=== PATIENT | female | born 1980 | race Two or more races ===

== ENCOUNTER 2017-06-07 19:03 | Emergency (ER) | payer OTHER ==
[2017-06-07] MEDS ORDERED: ONDANSETRON HCL INJ/PF 4 MG/2 ML SDV IV ONE (19:28)
[2017-06-07] MEDS ORDERED: NORMAL SALINE 1000 ML 1,000 ML IV ONE (19:28)
[2017-06-07] MEDS ORDERED: HYDROMORPHONE HCL INJ/PF 2 MG/ML AMPULE IV ONE ×2 (19:28→23:18)
--- NOTE | 2017-06-07 19:29 | ER Document Report ---
ED Medical Screen (RME) - General Chief Complaint: Vaginal Bleeding Stated Complaint: POSSIBLE MISCARRIAGE Time Seen by Provider: 06/07/17 19:27 Notes: pt states she is ten weeks preg and is now having severe abd pain/bleeding/ vomiting TRAVEL OUTSIDE OF THE [place] IN LAST 30 DAYS: No - Related Data Allergies/Adverse Reactions: No Known Allergies Allergy (Unverified 06/07/17 19:06) Physical Exam - Vital signs Vitals: Temp Pulse Resp BP Pulse Ox 97.8 F 56 L 20 123/105 H 100 06/07/17 19:20 06/07/17 19:20 06/07/17 19:20 06/07/17 19:20 06/07/17 19:20 Course - Vital Signs Vital signs: Temp Pulse Resp BP Pulse Ox 97.8 F 56 L 20 123/105 H 100 06/07/17 19:20 06/07/17 19:20 06/07/17 19:20 06/07/17 19:20 06/07/17 19:20
[2017-06-07 20:32] LABS: ABSOLUTE LYMPHOCYTES (AUTO) 1.1 10^3/uL (0.5-4.7); ABSOLUTE MONOCYTES (AUTO) 0.3 10^3/uL (0.1-1.4); ABSOLUTE NEUT (AUTO) 11.8 10^3/uL (1.7-8.2); BASOPHILS % (AUTO) 0.2 % (0-2); EOSINOPHILS % (AUTO) 0.2 % (0-6); HEMATOCRIT 37.4 % (36.0-47.0); HEMOGLOBIN 12.7 g/dL (12.0-15.5); LYMPHOCYTES % (AUTO) 8.3 % (13-45); MEAN CORPUSCULAR HEMOGLOBIN 28.5 pg (27.0-33.4); MEAN CORPUSCULAR VOLUME 84 fl (80-97); MONOCYTES % (AUTO) 2.3 % (3-13); PLATELET COUNT 404 10^3/uL (150-450); RED BLOOD COUNT 4.47 10^6/uL (3.72-5.28); RED CELL DISTRIBUTION WIDTH 12.8 % (11.5-14.0); TOTAL CELLS COUNTED % (AUTO) 100 %; WHITE BLOOD COUNT 13.2 10^3/uL (4.0-10.5)
[2017-06-07 20:39] LABS: ALANINE AMINOTRANSFERASE 35 U/L (9-52); ALBUMIN 4.4 g/dL (3.5-5.0); ALKALINE PHOSPHATASE 51 U/L (38-126); ANION GAP 13 (5-19); ASPARTATE AMINO TRANSFERASE 22 U/L (14-36); BILIRUBIN,DIRECT 0.3 mg/dL (0.0-0.4); BILIRUBIN,TOTAL 0.4 mg/dL (0.2-1.3); BLOOD UREA NITROGEN 7 mg/dL (7-20); CALCIUM 10.3 mg/dL (8.4-10.2); CARBON DIOXIDE 20 mmol/L (22-30); CHLORIDE 106 mmol/L (98-107); GLUCOSE 103 mg/dL (75-110); POTASSIUM 4.2 mmol/L (3.6-5.0); SODIUM 139.2 mmol/L (137-145); TOTAL PROTEIN 7.4 g/dL (6.3-8.2)
--- NOTE | 2017-06-07 21:39 | ER Document Report ---
ED General - General Mode of Arrival: Ambulatory Information source: Patient TRAVEL OUTSIDE OF THE [place] IN LAST 30 DAYS: No <EMILEE CAI - Last Filed: 06/08/17 03:36> <ELIEL DOUGHERTY - Last Filed: 06/08/17 03:47> - General Chief Complaint: Vaginal Bleeding Stated Complaint: POSSIBLE MISCARRIAGE Time Seen by Provider: 06/07/17 19:27 Notes: Patient is a 36 year old female presenting to the emergency department via EMS complaining of vaginal bleeding and abdominal cramps while approximately 10 weeks onset this morning. Patient states she woke up with some vaginal spotting which progressed to heavy bleeding with blood clots as the day went on. Patient states she has had a previous miscarriage although these symptoms are not similar. Patient states she has also been trying fertility treatments. Patient is . (EMILEE CAI) - Related Data Allergies/Adverse Reactions: No Known Allergies Allergy (Unverified 06/07/17 19:06) Past Medical History - General Information source: Patient - Social History Smoking Status: Unknown if Ever Smoked Family History: Reviewed & Not Pertinent Patient has suicidal ideation: No Patient has homicidal ideation: No Renal/ Medical History: Denies: Hx Peritoneal Dialysis <EMILEE CAI - Last Filed: 06/08/17 03:36> Review of Systems - Review of Systems Constitutional: No symptoms reported EENT: No symptoms reported Cardiovascular: No symptoms reported Respiratory: No symptoms reported Gastrointestinal: See HPI, Abdominal pain Genitourinary: No symptoms reported Female Genitourinary: See HPI, , Vaginal bleeding Musculoskeletal: No symptoms reported Skin: No symptoms reported Hematologic/Lymphatic: No symptoms reported Neurological/Psychological: No symptoms reported -: Yes All other systems reviewed and negative <EMILEE CAI - Last Filed: 06/08/17 03:36> Physical Exam <EMILEE CAI - Last Filed: 06/08/17 03:36> <ELIEL DOUGHERTY - Last Filed: 06/08/17 03:47> - Vital signs Vitals: Temp Pulse Resp BP Pulse Ox 97.8 F 56 L 20 123/105 H 100 06/07/17 19:20 06/07/17 19:20 06/07/17 19:20 06/07/17 19:20 06/07/17 19:20 - Notes Notes: GENERAL: Alert, interacts well. No acute distress. HEAD: Normocephalic, atraumatic. EYES: Pupils equal, round, and reactive to light. Extraocular movements intact. ENT: Oral mucosa moist, tongue midline. NECK: Full range of motion. Supple. Trachea midline. LUNGS: Clear to auscultation bilaterally, no wheezes, rales, or rhonchi. No respiratory distress. HEART: Regular rate and rhythm. No murmurs, gallops, or rubs. ABDOMEN: Soft, non-tender. Non-distended. Bowel sounds present in all 4 quadrants. EXTREMITIES: Moves all 4 extremities spontaneously. NEUROLOGICAL: Alert and oriented x3. Normal speech. PSYCH: Normal affect, normal mood. SKIN: Warm, dry, normal turgor. No rashes or lesions noted. (EMILEE CAI) Course - Laboratory Result Diagrams: 06/07/17 20:05 06/07/17 20:05 <EMILEE CAI - Last Filed: 06/08/17 03:36> - Laboratory Result Diagrams: 06/07/17 20:05 06/07/17 20:05 <ELIEL DOUGHERTY - Last Filed: 06/08/17 03:47> - Re-evaluation Re-evalutation: 06/07/17 23:12 Patient found to have incomplete miscarriages products of conception in her cervical canal. Patient is hemodynamically stable and well-appearing on exam. Discussed with patient need to follow-up with her IT ARCHITECT with her previously scheduled appointment for this coming Monday. I discussed return precautions including excessive bleeding feeling more than 1 pad for 6 hours. Will provide take home [place] as well as instructed to use ibuprofen every 6 hours for abdominal pain or come to ED sooner for any fevers or chills with worsening abdominal pain (ELIEL DOUGHERTY) - Vital Signs Vital signs: Temp Pulse Resp BP Pulse Ox 99.0 F 67 16 109/64 100 06/07/17 23:40 06/07/17 23:40 06/07/17 23:40 06/07/17 23:40 06/07/17 23:40 - Laboratory Laboratory results interpreted by me: 06/07/17 06/07/17 06/07/17 20:05 20:05 21:30 WBC 13.2 H Seg Neutrophils % 89.0 H Lymphocytes % 8.3 L Monocytes % 2.3 L Absolute Neutrophils 11.8 H Carbon Dioxide 20 L Calcium 10.3 H Beta HCG, Quant 7298.70 H Urine Protein 100 H Urine Blood LARGE H Ur Leukocyte Esterase TRACE H Discharge <EMILEE CAI - Last Filed: 06/08/17 03:36> <ELIEL DOUGHERTY - Last Filed: 06/08/17 03:47> - Discharge Clinical Impression: Incomplete miscarriage Condition: Stable Disposition: HOME, SELF-CARE Additional Instructions: Please use [id number] ibuprofen 800 mg every 6 hours as needed for cramping. Scribe Attestation: 06/08/17 03:47 I personally performed the services described documentation, reviewed and edited the documentation which was dictated to describe my presence, and it accurately records my words and actions. (ELIEL DOUGHERTY) Scribe Documentation - Scribe Written by Daniele:: Renay Whitley, 06/07/2017 21:42 acting as scribe for :: Mac <EMILEE CAI - Last Filed: 06/08/17 03:36>
--- NOTE | 2017-06-07 21:49 | RADIOLOGY REPORT (SQ) ---
EXAM DESCRIPTION: U/S OB TRANSVAGINAL W/O DOP COMPLETED DATE/TIME: 06/07/2017 9:29 pm REASON FOR STUDY: preg/pelvic pain COMPARISON: None. TECHNIQUE: T choose 1 static and realtime grayscale images acquired of the pelvis. Additional select ed spectral and color Doppler images recorded. All images stored on PACs. bHC,300 LIMITATIONS: None. FINDINGS: Gestational sac is present within the cervical canal. EGA: 7 weeks 5 days GAIL: 01/19/2018 FHR: Not identified. SUBCHORIONIC BLEED: No SIZE OF BLEED: Not applicable. UTERUS: No masses. No anomalies. CERVICAL LENGTH: 3.5 cm Closed. RIGHT ADNEXA: Normal ovary with normal vascular flow. No adnexal free fluid. No adnexal masses. LEFT ADNEXA: Normal ovary with normal vascular flow. No adnexal free fluid. No adnexal masses. FREE FLUID: None. OTHER: No other significant finding. IMPRESSION: Gestational sac is present within the cervical canal. No heart tones identified. EGA 7 weeks 5 days Trimester of : First - 0 to 13 weeks. TECHNICAL DOCUMENTATION: JOB ID: [id number] [employer]- All Rights Reserved
[2017-06-07 22:07] LABS: APPEARANCE,URINE CLOUDY; BILIRUBIN,URINE NEGATIVE (NEGATIVE); COLOR,URINE RED; GLUCOSE, URINE NEGATIVE (NEGATIVE); KETONES,URINE NEGATIVE (NEGATIVE); LEUKOCYTE ESTERASE,URINE TRACE (NEGATIVE); NITRITE,URINE NEGATIVE (NEGATIVE); PROTEIN,URINE 100 mg/dL (NEGATIVE); URINE SPECIFIC GRAVITY 1.011; UROBILINOGEN,URINE NEGATIVE mg/dL (<2.0)
[2017-06-07] MEDS ORDERED: HYDROCODONE/ACETAMINOPHEN 5-325 MG (6 TAB/ER DISP) PO PRN (23:15)
[2017-06-07] MEDS ORDERED: MORPHINE SULFATE 10 MG/ML INJ IV ONE (23:15)
[2017-06-07 23:42] VITALS: BP 109/64
== END 2017-06-07 23:42 | disposition home or self-care (01) ==
LOC: ER 19:03
DX: O03.4 Incomplete spontaneous abortion without complication (principal)
CPT/HCPCS: 96376; 99284; 96361; 96374; 96375; 86900; 86901; 36415; 84702; 85025; 80053; 81001; 76817; J1170; J2405; J7030